=== PATIENT | male | born 1990 | race Caucasian/White ===

== ENCOUNTER 2017-01-25 03:29 | Emergency (ER) | payer OTHER ==
--- NOTE | 2017-01-25 05:01 | ED Physician Documentation ---
History of Present Illness - Stated complaint Stated Complaint: RAPID HEART RATE - Chief complaint Chief Complaint: Cardiac - History obtained from History obtained from: Patient - History of Present Illness Timing: How many days ago (2) Improved by: rest Worsened by: weight-bearing - Additonal information Additional information: c/o 2 days of gradual onset, worsening LLE pain with focal swelling. denies injury Review of Systems Constitutional: denies: Fever Cardiac: reports: Reviewed and negative Respiratory: reports: Reviewed and negative Musculoskeletal: reports: Extremity pain, Pain with weight bearing PD PAST MEDICAL HISTORY - Past Medical History Past Medical History: No - Past Surgical History Past Surgical History: No - Present Medications Home Medications: Ambulatory Orders Medication Instructions Recorded Confirmed No Known Home Medications [No 01/25/17 01/25/17 Known Home Medications] - Allergies Allergies/Adverse Reactions: Allergies Allergy/AdvReac Type Severity Reaction Status Date / Time No Known Drug Allergies Allergy Verified 01/25/17 03:37 PD ED PE NORMAL - Vitals Vital signs reviewed: Yes - General General: Alert and oriented X 3, No acute distress, Well developed/nourished - Respiratory Respiratory: No respiratory distress, Clear bilaterally - Derm Derm: Warm and dry - Extremities Extremities: No tenderness to palpate, Normal ROM s pain PD ED PE EXPANDED - Extremities DAMION LE visual: 1 - rash (faint erythema, mild tenderness, mild swelling), swelling, tenderness Results - Vitals Vitals: Oxygen O2 Source Room air - Rads (name of study) LLE US Radiology: Prelim report reviewed, See rad report PD MEDICAL DECISION MAKING - ED course Complexity details: reviewed results, re-evaluated patient, considered differential, d/w patient Departure - Departure Disposition: 01 Home, Self Care Clinical Impression: Superfic phlebitis-leg Condition: Good Instructions: ED Phlebitis Superficial Follow-Up: Kody Mcginnis ARNP [Primary Care Provider] - Discharge Date/Time: 01/25/17 07:53
--- NOTE | 2017-01-25 07:27 | Ultrasound Preliminary Report ---
Exam: US Duplex Ext Veins Left IMPRESSION: No evidence for deep venous thrombosis. [facility] SITE ID: [id number]
--- NOTE | 2017-01-25 07:30 | Ultrasound Report ---
EXAM: LEFT LOWER EXTREMITY VENOUS ULTRASOUND EXAM DATE: 01/25/2017 07:08 AM. CLINICAL HISTORY: Swelling, pain. COMPARISON: None. TECHNIQUE: Real-time sonographic vascular imaging was performed by the flight line mechanic through the lower extremity utilizing both color-flow and Doppler spectral analysis. Multiple telephone services sales representative static roseann ges were saved for review. FINDINGS: Common Femoral Vein (CFV): Normal. CFV-GSV Junction: Normal. Profunda Femoral Vein (PFV): Normal. Femoral Vein (FV) Prox: Normal. Femoral Vein (FV) Mid: Normal. Femoral Vein (FV) Dist: Normal. Popliteal Vein: Normal. Posterior Tibial Veins: Normal. Peroneal Veins: Normal. Other: None. IMPRESSION: No evidence for deep venous thrombosis. [facility] Referring Provider Line: [phone] SITE ID: [id number]
[2017-01-25 07:53] VITALS: BP 115/66
== END 2017-01-25 07:53 | disposition home or self-care (01) ==
LOC: ED 03:29
DX: I80.02 Phlebitis and thrombophlebitis of superficial vessels of left lower extremity (principal)
CPT/HCPCS: 93005; 99283

== ENCOUNTER 2017-10-01 07:52 | Emergency (ER) | payer OTHER ==
[2017-10-01 08:01] VITALS: BP 144/82
--- NOTE | 2017-10-01 09:15 | ED Physician Documentation ---
History of Present Illness - Stated complaint Stated Complaint: JAW PX/S/P SURGERY - Chief complaint Chief Complaint: General - Additonal information Additional information: hx from pt 27 [facility] [place] male s/p oral / maxillofacial surgery at [facility] approx 3 days ago out of his oxycodone 5 mg can go to [place] tomorrow just needs enough until then otherwise doing well - no fever, swelling decreasing, taking ground up meds and liquid through his wired mouth Review of Systems Constitutional: denies: Fever PD PAST MEDICAL HISTORY - Past Medical History Past Medical History: Yes Cardiovascular: None Respiratory: None Neuro: None Endocrine/Autoimmune: None GI: None : None HEENT: None Psych: None Musculoskeletal: None Derm: None - Past Surgical History Past Surgical History: No - Present Medications Home Medications: Ambulatory Orders Medication Instructions Recorded Confirmed oxyCODONE [Roxicodone] 5 mg PO Q4-6H PRN #6 tablet 10/01/17 - Allergies Allergies/Adverse Reactions: Allergies Allergy/AdvReac Type Severity Reaction Status Date / Time No Known Drug Allergies Allergy Verified 01/25/17 03:37 - Social History Does the pt smoke?: No Smoking Status: Never smoker Does the pt drink ETOH?: No Does the pt have substance abuse?: No - Immunizations Immunizations are current?: Yes PD ED PE NORMAL - Vitals Vital signs reviewed: Yes - HEENT HEENT: Other (facial swelling improved per pt. motuh wired, some nasal congestion) - Cardiac Cardiac: RRR - Respiratory Respiratory: No respiratory distress, Clear bilaterally Results - Vitals Vitals: Vital Signs - 24 hr 10/01/17 07:58 Temperature 36.5 C Heart Rate 77 Respiratory 16 Rate Blood Pressure 144/82 H O2 Saturation 96 Oxygen O2 Source Room air Departure - Departure Disposition: Home, Self Care Clinical Impression: Medication refill Condition: Good Follow-Up: [facility] [Provider Group] Prescriptions: oxyCODONE [Roxicodone] 5 mg PO Q4-6H PRN #6 tablet PRN Reason: Severe Pain Comments: Narcotic pain medications are not supposed to be refilled in the ER It is Monday so I gave you enough for one day But we need you to see your doctor at [facility] tomorrow for any further medication refills and post operative care
== END 2017-10-01 09:35 | disposition home or self-care (01) ==
LOC: ED 07:52
DX: Z76.0 Encounter for issue of repeat prescription (principal); G89.18 Other acute postprocedural pain
CPT/HCPCS: 99283